=== PATIENT | female | born 1970 ===

== ENCOUNTER 2017-04-20 19:07 | Emergency (ER) | payer SELFPAY ==
[2017-04-20 19:36] VITALS: TEMP 97.8; BMI 21.9
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
[2017-04-20] MEDS ORDERED: Oxycodone/Acetaminophen 5/325 mg Tab PO STA (20:10)
[2017-04-20 22:35] VITALS: BP 124/80; PULSE 62; RESP 18; O2SAT 98
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
== END 2017-04-20 22:34 | disposition home or self-care (01) ==
LOC: ED 19:07
DX: S39.012A Strain of muscle, fascia and tendon of lower back, initial encounter (principal); V49.49XA Driver injured in collision with other motor vehicles in traffic accident, initial encounter; Y92.410 Unspecified street and highway as the place of occurrence of the external cause